=== PATIENT | female | born 1930 | race Caucasian/White ===

== ENCOUNTER 2017-09-05 15:35 | Inpatient (IN) | payer MEDICARE, OTHER ==
[~2017-09-05] VITALS: Ht 167.6 cm; Wt 78.6 kg
[~2017-09-05 15:35] MED LIST: ARICEPT10 MG PO; ARICEPT5 MG PO; ASPIRIN81 MG PO; CITRACAL + D 311 TAB PO; DOCUSATE CALCI100 MG PO; FIBER THER3.4 GM/DOS PO; HYDROCODONE BIT1 T11 PO; LEXAPRO20 MG PO; LISINOPRIL10 MG PO; LOPRESSOR25 MG PO; Lovenox40 MG/0.4 PO; METOPROLOL SR25 MG PO; METOPROLOL SUCC50 M1 PO; MULTIVITAMIN1 CTB PO; NAMENDA-5 PO; NAMENDA10 MG PO; NORVASC5 MG PO; OMEPRAZOLE20 MG PO; PRAVACHOL40 MG PO; TOPROL XL25 MG PO; ULTRAM50 MG PO; VITAMIN D1000 IU PO; ZESTRIL,PRINIVI20 MG PO
[2017-09-05 15:41] VITALS: BP 117/31
[2017-09-05 16:38] LABS: BASO % 0.3 % (0.0-1.0); EOS # 0.1 10*3/uL (0.0-0.4); EOS % 3.4 % (1.0-4.0); HEMATOCRIT 36.8 % (37.0-47.0); HEMOGLOBIN 12.2 g/dl (12.0-16.0); LYMPH % 27.2 % (27.0-41.0); MEAN CELL VOLUME 94.8 fl (81.0-99.0); MEAN CORPUSCULAR HGB 31.4 pg (27.0-31.0); MEAN CORPUSCULAR HGB CONC 33.2 g/dl (33.0-37.0); MEAN PLATELET VOLUME 12.2 fl (9.6-12.3); MONO # 0.4 10*3/uL (0.1-1.0); MONO % 11.5 % (3.0-9.0); NEUT # 2.2 10*3/uL (2.3-7.9); NEUT % 57.3 % (47.0-73.0); PLATELET COUNT AUTOMATED 102 10*3/uL (130-400); RED BLOOD COUNT 3.88 10*6/uL (4.10-5.10); RED CELL DISTRI WIDTH 13.6 % (0-14.5); WHITE BLOOD COUNT 3.8 10*3/uL (4.8-10.8)
[2017-09-05 16:56] LABS: ALBUMIN 3.4 gm/dl (3.1-4.5); ALKALINE PHOSPHATASE 65 U/L (45-117); BUN 26 mg/dl (7-24); CHLORIDE 106 mmol/L (98-107); CREATININE 0.96 mg/dL (0.55-1.02); POTASSIUM 3.9 mmol/L (3.5-5.1); SGOT/AST 39 IU/L (3-35); SGPT/ALT 36 U/L (12-78); SODIUM 140 mmol/L (136-145); TOTAL PROTEIN 6.6 gm/dL (6.4-8.2)
[2017-09-05 18:02] VITALS: BP 159/65
[2017-09-05] MEDS ORDERED: ZESTRIL10 MG PO (18:31)
[2017-09-05 20:29] VITALS: BP 106/66
[2017-09-06] VITALS: BP 115/49
[2017-09-06 06:20] LABS: HEMATOCRIT 35.2 % (37.0-47.0); HEMOGLOBIN 11.4 g/dl (12.0-16.0); LYMPH # 0.6 10*3/uL (1.3-4.4); LYMPH % 25.2 % (27.0-41.0); MEAN CELL VOLUME 94.4 fl (81.0-99.0); MEAN CORPUSCULAR HGB 30.6 pg (27.0-31.0); MEAN CORPUSCULAR HGB CONC 32.4 g/dl (33.0-37.0); MEAN PLATELET VOLUME 11.6 fl (9.6-12.3); MONO # 0.3 10*3/uL (0.1-1.0); MONO % 10.2 % (3.0-9.0); NEUT # 1.6 10*3/uL (2.3-7.9); NEUT % 64.2 % (47.0-73.0); PLATELET COUNT AUTOMATED 90 10*3/uL (130-400); RED BLOOD COUNT 3.73 10*6/uL (4.10-5.10); RED CELL DISTRI WIDTH 13.5 % (0-14.5); WHITE BLOOD COUNT 2.5 10*3/uL (4.8-10.8)
[2017-09-06 06:32] LABS: ALBUMIN 3.1 gm/dl (3.1-4.5); ALKALINE PHOSPHATASE 62 U/L (45-117); BUN 21 mg/dl (7-24); CHLORIDE 106 mmol/L (98-107); PHOSPHOROUS 3.2 mg/dL (2.5-4.9); POTASSIUM 4.2 mmol/L (3.5-5.1); SGOT/AST 72 IU/L (3-35); SGPT/ALT 67 U/L (12-78); SODIUM 139 mmol/L (136-145); TOTAL PROTEIN 6.2 gm/dL (6.4-8.2)
[2017-09-06 06:40] LABS: THYROID STIM HORMONE (HS) 0.901 uIU/ml (0.358-4.75)
[2017-09-06 08:00] VITALS: BP 137/58
[2017-09-06 12:00] VITALS: BP 132/57
[2017-09-06 16:00] VITALS: BP 183/74
[2017-09-06 20:00] VITALS: BP 145/60
[2017-09-07] VITALS: BP 152/62
[2017-09-07 06:57] LABS: HEMATOCRIT 36.8 % (37.0-47.0); LYMPH # 0.5 10*3/uL (1.3-4.4); LYMPH % 18.1 % (27.0-41.0); MEAN CELL VOLUME 94.8 fl (81.0-99.0); MEAN CORPUSCULAR HGB 30.9 pg (27.0-31.0); MEAN CORPUSCULAR HGB CONC 32.6 g/dl (33.0-37.0); MONO # 0.1 10*3/uL (0.1-1.0); MONO % 4.7 % (3.0-9.0); NEUT # 2.1 10*3/uL (2.3-7.9); NEUT % 76.8 % (47.0-73.0); PLATELET COUNT AUTOMATED 88 10*3/uL (130-400); RED BLOOD COUNT 3.88 10*6/uL (4.10-5.10); RED CELL DISTRI WIDTH 13.8 % (0-14.5); WHITE BLOOD COUNT 2.8 10*3/uL (4.8-10.8)
[2017-09-07 08:00] VITALS: BP 147/96
[2017-09-07 12:00] VITALS: BP 154/68
[2017-09-07 20:00] VITALS: BP 145/85
[2017-09-08] VITALS: BP 160/709
[2017-09-08 07:12] LABS: HEMATOCRIT 36.6 % (37.0-47.0); HEMOGLOBIN 12.2 g/dl (12.0-16.0); LYMPH # 0.5 10*3/uL (1.3-4.4); LYMPH % 8.2 % (27.0-41.0); MEAN CELL VOLUME 93.4 fl (81.0-99.0); MEAN CORPUSCULAR HGB 31.1 pg (27.0-31.0); MEAN CORPUSCULAR HGB CONC 33.3 g/dl (33.0-37.0); MEAN PLATELET VOLUME 11.6 fl (9.6-12.3); MONO # 0.3 10*3/uL (0.1-1.0); MONO % 4.1 % (3.0-9.0); NEUT # 5.7 10*3/uL (2.3-7.9); NEUT % 87.2 % (47.0-73.0); PLATELET COUNT AUTOMATED 79 10*3/uL (130-400); RED BLOOD COUNT 3.92 10*6/uL (4.10-5.10); RED CELL DISTRI WIDTH 13.8 % (0-14.5); WHITE BLOOD COUNT 6.6 10*3/uL (4.8-10.8)
[2017-09-08 08:00] VITALS: BP 186/86
[2017-09-08 12:00] VITALS: BP 156/80
[2017-09-08 16:00] VITALS: BP 161/78
[2017-09-08 20:00] VITALS: BP 158/79
[2017-09-09] VITALS: BP 158/80
[2017-09-09 07:03] LABS: HEMATOCRIT 37.2 % (37.0-47.0); HEMOGLOBIN 12.3 g/dl (12.0-16.0); MEAN CORPUSCULAR HGB 30.8 pg (27.0-31.0); MEAN CORPUSCULAR HGB CONC 33.1 g/dl (33.0-37.0); PLATELET COUNT AUTOMATED 86 10*3/uL (130-400); RED CELL DISTRI WIDTH 13.8 % (0-14.5); WHITE BLOOD COUNT 6.8 10*3/uL (4.8-10.8)
[2017-09-09 07:24] LABS: BURR CELLS FEW; PLATELET SUFFICIENCY LOW (NORMAL); TOTAL CELLS COUNTED 100 #CELLS
[2017-09-09 08:00] VITALS: BP 155/82
[2017-09-09 16:00] VITALS: BP 152/90
[2017-09-09 20:00] VITALS: BP 139/81
[2017-09-10] VITALS: BP 167/82
[2017-09-10 08:00] VITALS: BP 154/88
[2017-09-10 12:00] VITALS: BP 148/92
[2017-09-10] MEDS ORDERED: LISINOPRIL20 MG PO (12:14)
[2017-09-10] MEDS ORDERED: DOXYCYCLINE100 M3 PO (12:14)
[2017-09-10] MEDS ORDERED: PREDNISONE10 MG PO (12:14)
[2017-09-10] MEDS ORDERED: PROAIR HFA8.5 GM INH (12:14)
[2017-09-10] MEDS ORDERED: AMLODIPINE BESY10 MG PO (12:14)
== END 2017-09-10 16:09 | disposition home or self-care (01) | DRG 871 ==
LOC: ED 15:35 → EDHOLD 17:16 → 5E 17:16
PROVIDERS: Internal Medicine; Nurse Practitioner Family
DX: A41.89 Other specified sepsis (principal); J18.9 Pneumonia, unspecified organism; J10.00 Influenza due to other identified influenza virus with unspecified type of pneumonia; D69.6 Thrombocytopenia, unspecified; D68.59 Other primary thrombophilia; I48.91 Unspecified atrial fibrillation; E44.1 Mild protein-calorie malnutrition; E86.0 Dehydration; G30.9 Alzheimer's disease, unspecified; F02.80 Dementia in other diseases classified elsewhere, unspecified severity, without behavioral disturbance, psychotic disturbance, mood disturbance, and anxiety; R73.9 Hyperglycemia, unspecified; R65.20 Severe sepsis without septic shock; I51.7 Cardiomegaly; I10 Essential (primary) hypertension; I25.10 Atherosclerotic heart disease of native coronary artery without angina pectoris; D72.810 Lymphocytopenia; F32.9 Major depressive disorder, single episode, unspecified; Z96.653 Presence of artificial knee joint, bilateral; M19.90 Unspecified osteoarthritis, unspecified site; Z79.899 Other long term (current) drug therapy; Z88.0 Allergy status to penicillin; Z95.1 Presence of aortocoronary bypass graft; Z68.27 Body mass index [BMI] 27.0-27.9, adult

== ENCOUNTER 2017-09-19 09:21 | Emergency (ER) | payer MEDICARE, OTHER ==
[~2017-09-19] VITALS: Wt 83.5 kg
[~2017-09-19 09:21] MED LIST changes: +AMLODIPINE BESY10 MG PO; +DOXYCYCLINE100 M3 PO; +LISINOPRIL20 MG PO; +PREDNISONE10 MG PO; +PROAIR HFA8.5 GM INH; +ZESTRIL10 MG PO
[2017-09-19 09:25] VITALS: BP 122/55
== END 2017-09-19 12:24 | disposition home or self-care (01) ==
LOC: ED 09:21
DX: S51.811A Laceration without foreign body of right forearm, initial encounter (principal); M25.511 Pain in right shoulder; M25.551 Pain in right hip; I48.91 Unspecified atrial fibrillation; I25.10 Atherosclerotic heart disease of native coronary artery without angina pectoris; I10 Essential (primary) hypertension; M19.90 Unspecified osteoarthritis, unspecified site; Z88.0 Allergy status to penicillin; Z79.899 Other long term (current) drug therapy; W19.XXXA Unspecified fall, initial encounter; Y93.89 Activity, other specified; Y92.89 Other specified places as the place of occurrence of the external cause; Y99.8 Other external cause status

== ENCOUNTER 2017-10-21 13:47 | Inpatient (IN) | payer MEDICARE, OTHER ==
[~2017-10-21] VITALS: Ht 167.6 cm; Wt 80.0 kg
[2017-10-21 13:48] VITALS: BP 150/74
[2017-10-21 14:22] LABS: BASO % 0.1 % (0.0-1.0); EOS # 0.1 10*3/uL (0.0-0.4); EOS % 0.9 % (1.0-4.0); HEMATOCRIT 36.2 % (37.0-47.0); HEMOGLOBIN 12.1 g/dl (12.0-16.0); LYMPH # 1.2 10*3/uL (1.3-4.4); LYMPH % 17.6 % (27.0-41.0); MEAN CELL VOLUME 94.8 fl (81.0-99.0); MEAN CORPUSCULAR HGB 31.7 pg (27.0-31.0); MEAN CORPUSCULAR HGB CONC 33.4 g/dl (33.0-37.0); MEAN PLATELET VOLUME 12.8 fl (9.6-12.3); MONO # 0.7 10*3/uL (0.1-1.0); MONO % 10.4 % (3.0-9.0); NEUT # 4.8 10*3/uL (2.3-7.9); PLATELET COUNT AUTOMATED 116 10*3/uL (130-400); RED BLOOD COUNT 3.82 10*6/uL (4.10-5.10); RED CELL DISTRI WIDTH 14.6 % (0-14.5); WHITE BLOOD COUNT 6.8 10*3/uL (4.8-10.8)
[2017-10-21 14:26] LABS: INTERNATIONAL NORM RATIO 1.1 (2.0-3.5)
[2017-10-21] MEDS ORDERED: ELIQUIS2.5 M1 PO (14:36)
[2017-10-21] MEDS ORDERED: TRAMADOL HCL50 MG PO (14:37)
[2017-10-21 14:38] VITALS: BP 137/57
[2017-10-21 14:40] LABS: ALBUMIN 3.5 gm/dl (3.1-4.5); ALKALINE PHOSPHATASE 93 U/L (45-117); BUN 14 mg/dl (7-24); CHLORIDE 105 mmol/L (98-107); CREATININE 1.07 mg/dL (0.55-1.02); POTASSIUM 3.8 mmol/L (3.5-5.1); SGOT/AST 57 IU/L (3-35); SGPT/ALT 66 U/L (12-78); SODIUM 141 mmol/L (136-145); TOTAL PROTEIN 6.8 gm/dL (6.4-8.2); TROPONIN I < 0.015 ng/ml (<0.045)
[2017-10-21 15:19] VITALS: BP 126/60
[2017-10-21 15:47] VITALS: BP 124/68
[2017-10-21 20:00] VITALS: BP 123/57
[2017-10-22] VITALS: BP 119/57
[2017-10-22 06:35] LABS: HEMATOCRIT 33.9 % (37.0-47.0); HEMOGLOBIN 11.3 g/dl (12.0-16.0); LYMPH # 0.5 10*3/uL (1.3-4.4); LYMPH % 11.1 % (27.0-41.0); MEAN CELL VOLUME 93.4 fl (81.0-99.0); MEAN CORPUSCULAR HGB 31.1 pg (27.0-31.0); MEAN CORPUSCULAR HGB CONC 33.3 g/dl (33.0-37.0); MEAN PLATELET VOLUME 12.6 fl (9.6-12.3); MONO # 0.2 10*3/uL (0.1-1.0); NEUT # 3.6 10*3/uL (2.3-7.9); NEUT % 84.4 % (47.0-73.0); PLATELET COUNT AUTOMATED 90 10*3/uL (130-400); RED BLOOD COUNT 3.63 10*6/uL (4.10-5.10); RED CELL DISTRI WIDTH 14.4 % (0-14.5); WHITE BLOOD COUNT 4.2 10*3/uL (4.8-10.8)
[2017-10-22 07:04] LABS: ACT PARTIAL THROMBO TIME 27.5 SECONDS (20.8-31.5); BUN 16 mg/dl (7-24); CHLORIDE 103 mmol/L (98-107); CREATININE 0.99 mg/dL (0.55-1.02); INTERNATIONAL NORM RATIO 1.1 (2.0-3.5); POTASSIUM 3.6 mmol/L (3.5-5.1); SODIUM 140 mmol/L (136-145)
[2017-10-22 07:12] LABS: THYROID STIM HORMONE (HS) 0.908 uIU/ml (0.358-4.75)
[2017-10-22 08:00] VITALS: BP 145/73
[2017-10-22 10:23] LABS: VITAMIN D, 25-HYDROXY 61.4 ng/mL (30-100)
[2017-10-22 12:00] VITALS: BP 122/73
[2017-10-22 16:00] VITALS: BP 127/74
[2017-10-22 20:00] VITALS: BP 114/85
[2017-10-23] VITALS: BP 112/44
[2017-10-23 06:15] LABS: HEMATOCRIT 33.2 % (37.0-47.0); HEMOGLOBIN 11.1 g/dl (12.0-16.0); MEAN CELL VOLUME 94.1 fl (81.0-99.0); MEAN CORPUSCULAR HGB 31.4 pg (27.0-31.0); MEAN CORPUSCULAR HGB CONC 33.4 g/dl (33.0-37.0); MEAN PLATELET VOLUME 12.7 fl (9.6-12.3); PLATELET COUNT AUTOMATED 104 10*3/uL (130-400); RED BLOOD COUNT 3.53 10*6/uL (4.10-5.10); RED CELL DISTRI WIDTH 15.1 % (0-14.5); WHITE BLOOD COUNT 10.2 10*3/uL (4.8-10.8)
[2017-10-23 06:47] LABS: BUN 21 mg/dl (7-24); CHLORIDE 106 mmol/L (98-107); CREATININE 1.01 mg/dL (0.55-1.02); POTASSIUM 3.7 mmol/L (3.5-5.1); SODIUM 142 mmol/L (136-145)
[2017-10-23 06:59] LABS: OVALOCYTES FEW; PLATELET SUFFICIENCY LOW (NORMAL); TOTAL CELLS COUNTED 100 #CELLS
[2017-10-23 08:00] VITALS: BP 124/61
[2017-10-23 12:00] VITALS: BP 124/61; BP 142/75
[2017-10-23 16:00] VITALS: BP 122/68
[2017-10-23 20:00] VITALS: BP 130/62
[2017-10-24] VITALS: BP 108/53
[2017-10-24 08:00] VITALS: BP 137/61
[2017-10-24] MEDS ORDERED: DOXYCYCLINE100 M3 PO (11:52)
[2017-10-24] MEDS ORDERED: PREDNISONE10 MG PO (11:52)
[2017-10-24 12:00] VITALS: BP 127/50
[2017-10-24] MEDS ORDERED: OXYGEN NAS (13:10)
[2017-10-24] MEDS ORDERED: LASIX20 MG PO (13:22)
[2017-10-24] MEDS ORDERED: K-TAB10 MEQ PO (13:22)
== END 2017-10-24 15:50 | disposition home or self-care (01) | DRG 194 ==
LOC: ED 13:47 → EDHOLD 15:28 → 5E 15:59
PROVIDERS: Emergency Medicine; Family Medicine; Internal Medicine
DX: J18.1 Lobar pneumonia, unspecified organism (principal); D68.59 Other primary thrombophilia; D69.6 Thrombocytopenia, unspecified; I11.0 Hypertensive heart disease with heart failure; I50.9 Heart failure, unspecified; E44.1 Mild protein-calorie malnutrition; I48.91 Unspecified atrial fibrillation; G30.9 Alzheimer's disease, unspecified; F02.80 Dementia in other diseases classified elsewhere, unspecified severity, without behavioral disturbance, psychotic disturbance, mood disturbance, and anxiety; I44.7 Left bundle-branch block, unspecified; I25.10 Atherosclerotic heart disease of native coronary artery without angina pectoris; Z96.653 Presence of artificial knee joint, bilateral; R74.0 Nonspecific elevation of levels of transaminase and lactic acid dehydrogenase [LDH]; I27.20 Pulmonary hypertension, unspecified; F32.9 Major depressive disorder, single episode, unspecified; E78.5 Hyperlipidemia, unspecified; M19.90 Unspecified osteoarthritis, unspecified site; Z95.1 Presence of aortocoronary bypass graft; Z99.81 Dependence on supplemental oxygen; Z88.0 Allergy status to penicillin; Z79.899 Other long term (current) drug therapy; Z68.26 Body mass index [BMI] 26.0-26.9, adult

== ENCOUNTER 2017-11-14 21:10 | Inpatient (IN) | payer MEDICARE, OTHER ==
[~2017-11-14] VITALS: Ht 167.6 cm; Wt 74.4 kg
[~2017-11-14 21:10] MED LIST changes: +ELIQUIS2.5 M1 PO; +K-TAB10 MEQ PO; +LASIX20 MG PO; +OXYGEN NAS; +TRAMADOL HCL50 MG PO
[2017-11-14 21:13] VITALS: BP 108/51
[2017-11-14 21:42] LABS: BILIRUBIN 3+ (NEGATIVE); BLOOD 3+ (NEGATIVE); CLARITY TURBID (CLEAR); COLOR RED (YELLOW); GLUCOSE TRACE (NEGATIVE); KETONE 2+ (NEGATIVE); NITRITE POSITIVE (NEGATIVE); PH 6.5 (5.0-9.0); UROBILINOGEN >= 8.0 E.U./dl (0.2-1.0)
[2017-11-14 21:45] LABS: LEUKO ESTERASE 2+ (NEGATIVE)
[2017-11-14 21:51] LABS: RBC TNTC rbc/hpf (0-2)
[2017-11-14 22:06] LABS: BASO % 0.3 % (0.0-1.0); EOS # 0.2 10*3/uL (0.0-0.4); EOS % 3.4 % (1.0-4.0); HEMATOCRIT 34.7 % (37.0-47.0); HEMOGLOBIN 11.5 g/dl (12.0-16.0); LYMPH # 1.4 10*3/uL (1.3-4.4); LYMPH % 20.2 % (27.0-41.0); MEAN CELL VOLUME 96.1 fl (81.0-99.0); MEAN CORPUSCULAR HGB 31.9 pg (27.0-31.0); MEAN CORPUSCULAR HGB CONC 33.1 g/dl (33.0-37.0); MEAN PLATELET VOLUME 13.5 fl (9.6-12.3); MONO # 0.6 10*3/uL (0.1-1.0); NEUT # 4.6 10*3/uL (2.3-7.9); NEUT % 67.5 % (47.0-73.0); PLATELET COUNT AUTOMATED 84 10*3/uL (130-400); RED BLOOD COUNT 3.61 10*6/uL (4.10-5.10); RED CELL DISTRI WIDTH 14.5 % (0-14.5); WHITE BLOOD COUNT 6.8 10*3/uL (4.8-10.8)
[2017-11-14 22:22] LABS: ALBUMIN 2.8 gm/dl (3.1-4.5); ALKALINE PHOSPHATASE 57 U/L (45-117); BUN 24 mg/dl (7-24); CHLORIDE 105 mmol/L (98-107); CREATININE 1.76 mg/dL (0.55-1.02); SGOT/AST 14 IU/L (3-35); SGPT/ALT 22 U/L (12-78); SODIUM 144 mmol/L (136-145); TOTAL PROTEIN 5.6 gm/dL (6.4-8.2)
[2017-11-14 22:26] LABS: TROPONIN I < 0.015 ng/ml (<0.045)
[2017-11-14 23:13] VITALS: BP 102/49
[2017-11-14 23:40] VITALS: BP 106/53
[2017-11-15 06:35] LABS: BASO % 0.2 % (0.0-1.0); EOS # 0.2 10*3/uL (0.0-0.4); EOS % 3.4 % (1.0-4.0); HEMATOCRIT 33.9 % (37.0-47.0); HEMOGLOBIN 10.8 g/dl (12.0-16.0); LYMPH # 1.4 10*3/uL (1.3-4.4); LYMPH % 21.5 % (27.0-41.0); MEAN CELL VOLUME 97.7 fl (81.0-99.0); MEAN CORPUSCULAR HGB 31.1 pg (27.0-31.0); MEAN CORPUSCULAR HGB CONC 31.9 g/dl (33.0-37.0); MEAN PLATELET VOLUME 12.8 fl (9.6-12.3); MONO # 0.6 10*3/uL (0.1-1.0); MONO % 8.4 % (3.0-9.0); NEUT # 4.3 10*3/uL (2.3-7.9); NEUT % 65.9 % (47.0-73.0); PLATELET COUNT AUTOMATED 75 10*3/uL (130-400); RED BLOOD COUNT 3.47 10*6/uL (4.10-5.10); RED CELL DISTRI WIDTH 14.4 % (0-14.5); WHITE BLOOD COUNT 6.6 10*3/uL (4.8-10.8)
[2017-11-15 06:36] LABS: ALBUMIN 2.6 gm/dl (3.1-4.5); CREATININE 1.24 mg/dL (0.55-1.02); PHOSPHOROUS 3.1 mg/dL (2.5-4.9); POTASSIUM 3.5 mmol/L (3.5-5.1); TOTAL PROTEIN 5.1 gm/dL (6.4-8.2)
[2017-11-15 08:00] VITALS: BP 106/47
[2017-11-15] MEDS ORDERED: AMLODIPINE BESY10 MG PO (09:45)
[2017-11-15] MEDS ORDERED: DONEPEZIL HCL10 MG PO (09:46)
[2017-11-15] MEDS ORDERED: DAILY VITE1 EACH PO (09:46)
[2017-11-15] MEDS ORDERED: LEXAPRO20 MG PO (09:47)
[2017-11-15] MEDS ORDERED: ELIQUIS2.5 M1 PO (09:47)
[2017-11-15] MEDS ORDERED: LISINOPRIL20 MG PO (09:48)
[2017-11-15] MEDS ORDERED: LASIX20 MG PO (09:48)
[2017-11-15] MEDS ORDERED: NAMENDA10 MG PO (09:49)
[2017-11-15] MEDS ORDERED: POTASSIUM CHLO10 ME5 PO (09:50)
[2017-11-15] MEDS ORDERED: METOPROLOL SUCC25 M2 PO (09:50)
[2017-11-15] MEDS ORDERED: FIBER LAX625 MG PO (09:51)
[2017-11-15] MEDS ORDERED: PRAVACHOL40 MG PO (09:51)
[2017-11-15] MEDS ORDERED: VITAMIN D-32000 UNI1 PO (09:52)
[2017-11-15] MEDS ORDERED: DOK100 MG PO (09:53)
[2017-11-15] MEDS ORDERED: PROAIR HFA8.5 GM INH (09:54)
[2017-11-15] MEDS ORDERED: ULTRAM50 MG PO (09:55)
[2017-11-15 12:00] VITALS: BP 110/47
[2017-11-15 16:00] VITALS: BP 120/58
[2017-11-15 20:00] VITALS: BP 120/58
[2017-11-16] VITALS: BP 119/48
[2017-11-16 06:49] LABS: BASO % 0.2 % (0.0-1.0); EOS # 0.3 10*3/uL (0.0-0.4); EOS % 6.5 % (1.0-4.0); HEMATOCRIT 33.3 % (37.0-47.0); HEMOGLOBIN 10.8 g/dl (12.0-16.0); LYMPH # 0.8 10*3/uL (1.3-4.4); LYMPH % 15.7 % (27.0-41.0); MEAN CELL VOLUME 95.4 fl (81.0-99.0); MEAN CORPUSCULAR HGB 30.9 pg (27.0-31.0); MEAN CORPUSCULAR HGB CONC 32.4 g/dl (33.0-37.0); MEAN PLATELET VOLUME 12.6 fl (9.6-12.3); MONO # 0.4 10*3/uL (0.1-1.0); MONO % 7.9 % (3.0-9.0); NEUT # 3.6 10*3/uL (2.3-7.9); NEUT % 68.7 % (47.0-73.0); PLATELET COUNT AUTOMATED 79 10*3/uL (130-400); RED BLOOD COUNT 3.49 10*6/uL (4.10-5.10); RED CELL DISTRI WIDTH 14.3 % (0-14.5); WHITE BLOOD COUNT 5.2 10*3/uL (4.8-10.8)
[2017-11-16 07:10] LABS: ALBUMIN 2.8 gm/dl (3.1-4.5); ALKALINE PHOSPHATASE 53 U/L (45-117); BUN 15 mg/dl (7-24); CHLORIDE 113 mmol/L (98-107); CREATININE 0.96 mg/dL (0.55-1.02); POTASSIUM 3.7 mmol/L (3.5-5.1); SGOT/AST 12 IU/L (3-35); SGPT/ALT 20 U/L (12-78); SODIUM 148 mmol/L (136-145); TOTAL PROTEIN 5.3 gm/dL (6.4-8.2)
[2017-11-16 08:00] VITALS: BP 123/62
[2017-11-16 12:00] VITALS: BP 122/53
[2017-11-16 16:00] VITALS: BP 115/62
[2017-11-16 20:00] VITALS: BP 129/62
[2017-11-17] VITALS: BP 131/66
[2017-11-17 08:00] VITALS: BP 106/70
[2017-11-17] MEDS ORDERED: NYSTOP60 GM T (10:55)
[2017-11-17 12:00] VITALS: BP 117/66
== END 2017-11-17 14:00 | disposition home or self-care (01) | DRG 682 ==
LOC: ED 21:10 → 5E 23:16 → EDHOLD 23:16 → 5E 23:16
PROVIDERS: Emergency Medicine Emergency Medical Services; Internal Medicine; Internal Medicine Hospice and Palliative Medicine
DX: N17.0 Acute kidney failure with tubular necrosis (principal); E43 Unspecified severe protein-calorie malnutrition; E87.0 Hyperosmolality and hypernatremia; D69.6 Thrombocytopenia, unspecified; E87.8 Other disorders of electrolyte and fluid balance, not elsewhere classified; I50.32 Chronic diastolic (congestive) heart failure; I48.91 Unspecified atrial fibrillation; I13.0 Hypertensive heart and chronic kidney disease with heart failure and stage 1 through stage 4 chronic kidney disease, or unspecified chronic kidney disease; N39.0 Urinary tract infection, site not specified; G30.9 Alzheimer's disease, unspecified; F02.80 Dementia in other diseases classified elsewhere, unspecified severity, without behavioral disturbance, psychotic disturbance, mood disturbance, and anxiety; D64.9 Anemia, unspecified; R31.9 Hematuria, unspecified; R82.4 Acetonuria; R80.9 Proteinuria, unspecified; I25.10 Atherosclerotic heart disease of native coronary artery without angina pectoris; Z96.653 Presence of artificial knee joint, bilateral; N18.9 Chronic kidney disease, unspecified; F32.9 Major depressive disorder, single episode, unspecified; E78.5 Hyperlipidemia, unspecified; M15.9 Polyosteoarthritis, unspecified; K59.00 Constipation, unspecified; E55.9 Vitamin D deficiency, unspecified; I44.7 Left bundle-branch block, unspecified; B37.2 Candidiasis of skin and nail; Z68.29 Body mass index [BMI] 29.0-29.9, adult; Z95.1 Presence of aortocoronary bypass graft

== ENCOUNTER 2017-12-03 11:45 | Inpatient (IN) | payer MEDICARE, OTHER ==
[~2017-12-03] VITALS: Ht 167.6 cm; Wt 74.4 kg
--- NOTE | ~2017-12-03 | EKG ---
[place], [place] ELECTROCARDIOGRAM REPORT NAME: REJI GAUTHIER UNIT #: [id number] ROOM: [id number] DOCTOR: ANGY ALEJANDRO MD BIRTHDATE: [birth year] DOS: 12/03/2017 TIME: 1208 hours. FINDINGS: 1. Atrial fibrillation with ventricular rate of 68 beats per minute. 2. Incomplete left bundle-branch block should be considered. 3. An abnormal ECG. 4. No previous tracing is available for comparison. ANGY ALEJANDRO MD CM:EKGRPT:ELECTROCARDIOGRAM REPORT [id number] ANGY ALEJANDRO MD
[~2017-12-03 11:45] MED LIST changes: +DAILY VITE1 EACH PO; +DOK100 MG PO; +DONEPEZIL HCL10 MG PO; +FIBER LAX625 MG PO; +METOPROLOL SUCC25 M2 PO; +NYSTOP60 GM T; +POTASSIUM CHLO10 ME5 PO; +VITAMIN D-32000 UNI1 PO
[2017-12-03 11:51] VITALS: BP 111/50
[2017-12-03 12:06] LABS: BASO % 0.4 % (0.0-1.0); EOS # 0.1 10*3/uL (0.0-0.4); EOS % 1.8 % (1.0-4.0); HEMATOCRIT 35.4 % (37.0-47.0); HEMOGLOBIN 11.4 g/dl (12.0-16.0); LYMPH # 1.9 10*3/uL (1.3-4.4); LYMPH % 37.3 % (27.0-41.0); MEAN CELL VOLUME 97.8 fl (81.0-99.0); MEAN CORPUSCULAR HGB 31.5 pg (27.0-31.0); MEAN CORPUSCULAR HGB CONC 32.2 g/dl (33.0-37.0); MONO # 0.5 10*3/uL (0.1-1.0); MONO % 9.6 % (3.0-9.0); NEUT # 2.5 10*3/uL (2.3-7.9); NEUT % 50.5 % (47.0-73.0); PLATELET COUNT AUTOMATED 110 10*3/uL (130-400); RED BLOOD COUNT 3.62 10*6/uL (4.10-5.10); RED CELL DISTRI WIDTH 14.5 % (0-14.5)
[2017-12-03 12:23] LABS: ALBUMIN 3.1 gm/dl (3.1-4.5); ALKALINE PHOSPHATASE 66 U/L (45-117); BUN 16 mg/dl (7-24); CHLORIDE 106 mmol/L (98-107); LIPASE 73 U/L (73-393); POTASSIUM 3.6 mmol/L (3.5-5.1); SGOT/AST 15 IU/L (3-35); SGPT/ALT 15 U/L (12-78); SODIUM 145 mmol/L (136-145)
[2017-12-03 12:24] LABS: ACT PARTIAL THROMBO TIME 26.9 SECONDS (20.8-31.5); INTERNATIONAL NORM RATIO 1.1 (2.0-3.5)
[2017-12-03 12:28] LABS: TROPONIN I < 0.015 ng/ml (<0.045)
[2017-12-03 14:46] VITALS: BP 110/62
[2017-12-03 16:00] VITALS: BP 108/50
[2017-12-03 20:00] VITALS: BP 97/54
[2017-12-04] VITALS: BP 98/40
[2017-12-04 06:57] LABS: INTERNATIONAL NORM RATIO 1.1 (2.0-3.5)
[2017-12-04 06:59] LABS: BUN 18 mg/dl (7-24); CHLORIDE 110 mmol/L (98-107); CREATININE 0.91 mg/dL (0.55-1.02); POTASSIUM 4.2 mmol/L (3.5-5.1); SODIUM 148 mmol/L (136-145)
[2017-12-04 07:17] LABS: HEMATOCRIT 32.5 % (37.0-47.0); HEMOGLOBIN 10.4 g/dl (12.0-16.0); MEAN CELL VOLUME 97.9 fl (81.0-99.0); MEAN CORPUSCULAR HGB 31.3 pg (27.0-31.0); MEAN PLATELET VOLUME 12.6 fl (9.6-12.3); PLATELET COUNT AUTOMATED 106 10*3/uL (130-400); RED BLOOD COUNT 3.32 10*6/uL (4.10-5.10); RED CELL DISTRI WIDTH 14.5 % (0-14.5); WHITE BLOOD COUNT 4.5 10*3/uL (4.8-10.8)
[2017-12-04 07:34] LABS: OVALOCYTES MODERATE; PLATELET SUFFICIENCY LOW (NORMAL); TOTAL CELLS COUNTED 100 #CELLS
[2017-12-04 08:00] VITALS: BP 124/50
[2017-12-04 09:35] LABS: BILIRUBIN NEGATIVE (NEGATIVE); BLOOD NEGATIVE (NEGATIVE); CLARITY CLOUDY (CLEAR); COLOR YELLOW (YELLOW); GLUCOSE NEGATIVE (NEGATIVE); KETONE TRACE (NEGATIVE); LEUKO ESTERASE NEGATIVE (NEGATIVE); NITRITE NEGATIVE (NEGATIVE); PH 5.5 (5.0-9.0); SPECIFIC GRAVITY >= 1.030 (1.005-1.030); UROBILINOGEN 0.2 E.U./dl (0.2-1.0)
[2017-12-04 09:48] LABS: BACTERIA TRACE; EPITHELIAL CELLS 16-20
[2017-12-04 12:00] VITALS: BP 122/52
[2017-12-04 16:00] VITALS: BP 112/50
[2017-12-04 20:00] VITALS: BP 91/42
[2017-12-05] VITALS: BP 111/47
[2017-12-05 06:41] LABS: BASO % 0.1 % (0.0-1.0); HEMATOCRIT 31.9 % (37.0-47.0); HEMOGLOBIN 10.3 g/dl (12.0-16.0); LYMPH # 0.7 10*3/uL (1.3-4.4); LYMPH % 7.2 % (27.0-41.0); MEAN CELL VOLUME 97.6 fl (81.0-99.0); MEAN CORPUSCULAR HGB 31.5 pg (27.0-31.0); MEAN CORPUSCULAR HGB CONC 32.3 g/dl (33.0-37.0); MONO # 0.3 10*3/uL (0.1-1.0); MONO % 3.3 % (3.0-9.0); NEUT % 88.9 % (47.0-73.0); PLATELET COUNT AUTOMATED 112 10*3/uL (130-400); RED BLOOD COUNT 3.27 10*6/uL (4.10-5.10); WHITE BLOOD COUNT 10.2 10*3/uL (4.8-10.8)
[2017-12-05 07:07] LABS: BUN 21 mg/dl (7-24); CHLORIDE 110 mmol/L (98-107); CREATININE 1.04 mg/dL (0.55-1.02); POTASSIUM 3.8 mmol/L (3.5-5.1); SODIUM 146 mmol/L (136-145)
[2017-12-05 08:00] VITALS: BP 136/63
[2017-12-05 12:00] VITALS: BP 134/58
[2017-12-05] MEDS ORDERED: VIBRAMYCIN100 MG PO (13:09)
[2017-12-05] MEDS ORDERED: PREDNISONE10 MG PO (13:09)
== END 2017-12-05 16:35 | disposition home health service (06) | DRG 202 ==
LOC: ED 11:45 → EDHOLD 13:49 → 4E 13:49
PROVIDERS: Family Medicine; Internal Medicine; Nurse Practitioner Family
DX: J20.9 Acute bronchitis, unspecified (principal); E43 Unspecified severe protein-calorie malnutrition; D61.818 Other pancytopenia; D68.59 Other primary thrombophilia; D69.6 Thrombocytopenia, unspecified; E87.8 Other disorders of electrolyte and fluid balance, not elsewhere classified; E87.0 Hyperosmolality and hypernatremia; F02.81 Dementia in other diseases classified elsewhere, unspecified severity, with behavioral disturbance; R55 Syncope and collapse; I48.2 Chronic atrial fibrillation; G30.9 Alzheimer's disease, unspecified; I50.9 Heart failure, unspecified; E78.5 Hyperlipidemia, unspecified; I44.7 Left bundle-branch block, unspecified; D64.9 Anemia, unspecified; I25.10 Atherosclerotic heart disease of native coronary artery without angina pectoris; R73.9 Hyperglycemia, unspecified; F32.9 Major depressive disorder, single episode, unspecified; I11.0 Hypertensive heart disease with heart failure; M19.90 Unspecified osteoarthritis, unspecified site; Z96.653 Presence of artificial knee joint, bilateral; I27.20 Pulmonary hypertension, unspecified; Z95.1 Presence of aortocoronary bypass graft; Z87.440 Personal history of urinary (tract) infections; Z88.0 Allergy status to penicillin; Z79.899 Other long term (current) drug therapy; Z68.26 Body mass index [BMI] 26.0-26.9, adult